=== PATIENT | female | born 1970 | race Caucasian/White ===

== ENCOUNTER → 2019-05-25 11:00 | Outpatient (CLI) | payer OTHER | END | disposition home or self-care (01) | LOC: D.MAMMO 10:30 | PROVIDERS: ATTEND Nurse Practitioner Family | DX: Z12.31 Encounter for screening mammogram for malignant neoplasm of breast (principal) ==

== ENCOUNTER 2019-06-22 11:00 | Outpatient (CLI) | payer OTHER | END 2019-06-22 11:30 | disposition home or self-care (01) | LOC: D.MAMMO 11:00 | PROVIDERS: ATTEND Nurse Practitioner Family | DX: R92.8 Other abnormal and inconclusive findings on diagnostic imaging of breast (principal) ==

== ENCOUNTER 2019-11-30 09:00 | Outpatient (CLI) | payer OTHER | END 2019-11-30 10:00 | disposition home or self-care (01) | LOC: D.MAMMO 09:00 → D.US 12-19 09:00 | PROVIDERS: ATTEND Nurse Practitioner Family | DX: R92.8 Other abnormal and inconclusive findings on diagnostic imaging of breast (principal) ==

== ENCOUNTER 2021-02-07 12:07 | Outpatient (CLI) | payer OTHER | END 2021-02-07 23:59 | disposition home or self-care (01) | LOC: D.MAMMO 12:07 | PROVIDERS: ATTEND Nurse Practitioner Family | DX: Z12.31 Encounter for screening mammogram for malignant neoplasm of breast (principal) ==